=== PATIENT | female | born 1985 | race Caucasian/White ===

== ENCOUNTER 2024-03-29 22:25 | Emergency (ER) | payer SELFPAY ==
[~2024-03-29] VITALS: Ht 157.5 cm; Wt 90.9 kg
[2024-03-29 22:29] VITALS: BP 116/78; TEMP 98.4
[2024-03-29 23:32] VITALS: PULSE 90
== END 2024-03-29 23:33 | disposition home or self-care (01) ==
LOC: COL.ER 22:25
DX: M72.2 Plantar fascial fibromatosis (principal)